=== PATIENT | male | born 1955 | race Caucasian/White ===

== ENCOUNTER 2021-12-26 11:54 | Day surgery (SDC) | payer MEDICARE ==
[2021-12-22 09:15] VITALS: BMI 18.6
[~2021-12-26 11:54] MED LIST: ALBUTEROL NEB (CONC) 2.5 MG/0.5 ML INHALATION ONE; LACTATED RINGERS 1,000 ML IV SCH; LIDOCAINE 2% (PF) 20 MG/ML 5 ML VIAL INHALATION ONE; LIDOCAINE VISCOUS 300 MG/15 ML CUP MUCOUS MEM ONE
[2021-12-26 12:37] VITALS: TEMP 97.1
[2021-12-26] MEDS ORDERED: LIDOCAINE 1% INJ 10MG/ML (20 ML MDV) ONE (12:44)
[2021-12-26] MEDS ORDERED: PROPOFOL 10 MG/ML 20 ML VIAL IV ONE (12:44)
[2021-12-26] MEDS ORDERED: LIDOCAINE 2% INJ 20 MG/ML INTRATRACH ONE (12:55)
--- NOTE | 2021-12-26 13:02 | P.PCN ---
Date of Procedure: 12/26/21 Preoperative Diagnosis: Abnormal CT of the neck with a questionable tracheal lesions/tumor Postoperative Diagnosis: Normal airway examination Procedure(s) Performed: Flexible bronchoscopy and airway examination Anesthesia: MAC Surgeon: Michel Felipe Pathology: other Condition: stable Disposition: same day Operative Findings: This is a flexible bronchoscope that was done under conscious sedation. A timeout was done. A consent was obtained. This procedure was done in the endoscopy suite. The patient was sedated with propofol. After achieving adequate sedation, the flexible scope was introduced through the left nostril was advanced into the upper airway. Examination of the posterior oropharynx, larynx, epiglottis, vallecula, retinoids and the vocal cords were all within normal limits and the patient had no abnormalities in the upper airways. The vocal cord function mobility was within normal limits with normal abduction and adduction. A total of 2 1% lidocaine was applied to the vocal cords and following that the bronchoscope was advanced into the subglottic trachea and airways inspection was done Epiglottic trachea was within normal limits. Examination of the entire trachea was done including the upper mid and lower portion of the trachea and everything was within normal limits. There was no endobronchial lesions, tumors, polyps, foreign bodies. There was limited amount of it for secretions were suctioned out. Airways inspection was completed and examination was done involving the main mina was sharp and it was in the midline. Bilateral mainstem bronchi were within normal limits. Examination of the right settings with a right upper lobe bronchus, bronchus intermedius, right middle lobe and right lower lobe bronchus along with the various segments and the right lung. Examination left- sided pleural and left mainstem bronchus, left upper lobe bronchus and left lower lobe bronchus along with various segments on the left lung. All of these airways were normal and there was no abnormalities identified. No mucosal irregularities. No foreign bodies. After completing the airway inspection, the bronchoscope was removed and patient was transferred recovery in stable condition Plan Proceed with a CAT scan of the chest and reassure the patient regarding the results of the bronchoscopy.
[2021-12-26 13:25] VITALS: BP 115/70; PULSE 80; RESP 18
== END 2021-12-26 14:39 | disposition home or self-care (01) ==
LOC: ORWHC2ENDO 11:54
PROVIDERS: ATTEND Internal Medicine Critical Care Medicine
DX: J39.8 Other specified diseases of upper respiratory tract (principal); F41.1 Generalized anxiety disorder; G89.4 Chronic pain syndrome; J44.9 Chronic obstructive pulmonary disease, unspecified; M06.9 Rheumatoid arthritis, unspecified; Z80.8 Family history of malignant neoplasm of other organs or systems; Z87.891 Personal history of nicotine dependence; K21.9 Gastro-esophageal reflux disease without esophagitis; M81.0 Age-related osteoporosis without current pathological fracture; I10 Essential (primary) hypertension; Z86.73 Personal history of transient ischemic attack (TIA), and cerebral infarction without residual deficits; Z79.83 Long term (current) use of bisphosphonates; Z79.899 Other long term (current) drug therapy; Z97.2 Presence of dental prosthetic device (complete) (partial)
CPT/HCPCS: 31622; J2001 ×2; J2704; 31645

== ENCOUNTER → 2023-01-22 | Outpatient (CLI) | payer MEDICARE ==
--- NOTE | 2023-01-22 11:37 | CT ---
EXAMINATION TYPE: CT thoracic spine wo con DATE OF EXAM: 01/22/2023 COMPARISON: None HISTORY: back pain CT DLP: 549.1 mGycm Automated exposure control for dose reduction was used. Unenhanced CT of the thoracic spine was perfo rmed. FINDINGS: There is curvature convex to the right. There is mild loss of height and mild sclerosis involving T4 and T6 which likely reflects a remote compression fracture. There is a degree of sclerosis and if the re is a history of primary malignancy consider bone scan. The remaining thoracic segments are of norm al height and osseous density. Mild multilevel degenerative disc space narrowing and minimal ventral spondylosis. No evidence for paraspinal mass pleural based calcifications are seen. There are also ca lcified mediastinal lymph nodes. IMPRESSION: 1.There is mild loss of height and mild sclerosis involving T4 and T6 which likely reflects a remote compression fracture. There is a degree of sclerosis and if there is a history of primary malignancy consider bone scan.
== END | disposition home or self-care (01) ==
LOC: RADCTMAIN 10:50
PROVIDERS: ATTEND Family Medicine
DX: M51.14 Intervertebral disc disorders with radiculopathy, thoracic region (principal); M47.814 Spondylosis without myelopathy or radiculopathy, thoracic region; G95.89 Other specified diseases of spinal cord
CPT/HCPCS: 72128

== ENCOUNTER 2024-02-14 14:44 | Inpatient (IN) | payer MEDICARE ==
--- NOTE | 2024-02-14 15:10 | ED ---
General Adult HPI - General Chief complaint: Shortness of Breath Stated complaint: RIKKI-sent by PCP Time Seen by Provider: 02/14/24 14:56 Source: patient, RN notes reviewed Mode of arrival: ambulatory Limitations: no limitations - History of Present Illness Initial comments: Patient is a pleasant 68-year-old male present to the emergency department with concerns with shortness of breath. Onset of symptoms was the past couple of days. Patient does have some chest congestion with cough however cough is nonproductive. Unclear if patient could have had fevers. Patient does have history of COPD. No calf pain or swelling. - Related Data Home Medications Medication Instructions Recorded Confirmed Albuterol Inhaler [Ventolin Hfa 2 puff INHALATION RT-QID PRN 12/22/21 02/14/24 Inhaler] Cholecalciferol [Vitamin D3 (25 25 mcg PO DAILY 02/14/24 02/14/24 Mcg = 1000 Iu)] DULoxetine HCL [Cymbalta] 30 mg PO DAILY PRN 02/14/24 02/14/24 Gabapentin [Neurontin] 300 mg PO TID PRN 02/14/24 02/14/24 Ipratropium-Albuterol Nebulize 3 ml INHALATION RT-QID 02/14/24 02/14/24 [Duoneb 0.5 mg-3 mg/3 ml Soln] Multivitamins, Thera [Multivitamin 1 tab PO DAILY 02/14/24 02/14/24 (formulary)] methocarbamoL [Robaxin] 500 mg PO BID 02/14/24 02/14/24 traMADol HCL 50 mg PO TID 02/14/24 02/14/24 traZODone HCL [Desyrel] 50 mg PO HS 02/14/24 02/14/24 Allergies Allergy/AdvReac Type Severity Reaction Status Date / Time No Known Allergies Allergy Verified 02/14/24 17:08 Review of Systems ROS Statement: Those systems with pertinent positive or pertinent negative responses have been documented in the HPI. ROS Other: All systems not noted in ROS Statement are negative. Constitutional: Denies: fever Eyes: Denies: eye pain ENT: Denies: ear pain Respiratory: Reports: as per HPI, cough, dyspnea Cardiovascular: Denies: chest pain Endocrine: Reports: fatigue Gastrointestinal: Denies: abdominal pain Musculoskeletal: Denies: back pain Past Medical History Past Medical History: COPD, Deep Vein Thrombosis (DVT), Hypertension, Myocardial Infarction (MN), Musculoskeletal Disorder, Rheumatoid Arthritis (RA) Additional Past Medical History / Comment(s): Hx DVT yrs ago, hx kidney stones, hx seizure after going "cold turkey" from drinking 7-8 yrs ago, hx and current thoracic fracture, bulging discs, Osteoporosis. Last Myocardial Infarction Date:: Unknown History of Any Multi-Drug Resistant Organisms: None Reported Past Surgical History: Appendectomy, Orthopedic Surgery Additional Past Surgical History / Comment(s): Kyphoplasty, right carpal tunnel X3, fatty tumor removed from groin, bronchoscopy. Past Anesthesia/Blood Transfusion Reactions: No Reported Reaction Past Psychological History: Anxiety Smoking Status: Former smoker Past Alcohol Use History: Rare Past Drug Use History: Marijuana - Past Family History Mother Family Medical History: No Reported History General Exam Limitations: no limitations General appearance: alert, in no apparent distress Head exam: Present: normocephalic Eye exam: Present: normal appearance Neck exam: Present: normal inspection Respiratory exam: Present: wheezes, decreased breath sounds Cardiovascular Exam: Present: regular rate, normal rhythm GI/Abdominal exam: Present: soft. Absent: tenderness Extremities exam: Present: normal inspection. Absent: pedal edema, calf tenderness Neurological exam: Present: alert Psychiatric exam: Present: normal affect, normal mood Skin exam: Present: normal color Course Vital Signs 02/14/24 02/14/24 02/14/24 14:49 15:16 15:30 Temperature 98.2 F Pulse Rate 60 106 H Respiratory 26 H 22 Rate Blood Pressure 107/67 O2 Sat by Pulse 94 L Oximetry 02/14/24 15:38 Temperature Pulse Rate 112 H Respiratory Rate Blood Pressure O2 Sat by Pulse Oximetry EKG Findings - EKG Results: EKG: interpreted by ERMD, sinus rhythm, normal axis, normal QRS, normal ST/T EKG shows: tachycardia Medical Decision Making - Medical Decision Making Was pt. sent in by a medical professional or institution (, PA, EXPLORATION GEOLOGIST, urgent care, hospital, or fpc...) When possible be specific @ -Patient states he was sent by Dr. Jones's office Did you speak to anyone other than the patient for history (EMS, parent, family, police, friend...)? What history was obtained from this source @ -No Did you review nursing and triage notes (agree or disagree)? Why? @ -I reviewed and agree with nursing and triage notes Were old charts reviewed (outside hosp., previous admission, EMS record, old EKG, old radiological studies, urgent care reports/EKG's, fpc records)? Report findings @ -Previous chest x-ray shows no acute process Differential Diagnosis (chest pain, altered mental status, abdominal pain women, abdominal pain men, vaginal bleeding, weakness, fever, dyspnea, syncope, headache, dizziness, GI bleed, back pain, seizure, CVA, palpatations, mental health, musculoskeletal)? @ -Differential Dyspnea: Coronary syndrome, arrhythmia, tamponade, asthma, COPD, pulmonary embolism, pneumonia, pneumothorax, pulmonary effusion, anaphylaxis, diabetic ketoacidosis, flailed chest, pulmonary contusion, diaphragmatic rupture, anemia, neuromuscular, this is not meant to be an all-inclusive list. EKG interpreted by me (3pts min.). @ -As above X-rays interpreted by me (1pt min.). @ -Chest x-ray shows no acute process CT interpreted by me (1pt min.). @ -None done U/S interpreted by me (1pt. min.). @ -None done What testing was considered but not performed or refused? (CT, X-rays, U/S, labs)? Why? @ -None What meds were considered but not given or refused? Why? @ -None Did you discuss the management of the patient with other professionals (professionals i.e. , PA, EXPLORATION GEOLOGIST, lab, RT, psych nurse, social media marketing analyst, child care centre director, teacher, pharmaceutical officer, family preservation caseworker)? Give summary @ -Dr. Jones who is familiar with this patient and will admit. Was smoking cessation discussed for >3mins.? @ -No Was critical care preformed (if so, how long)? @ -No Were there social determinants of health that impacted care today? How? (Homelessness, low income, unemployed, alcoholism, drug addiction, transportation, low edu. Level, literacy, decrease access to med. care, skilled nursing, rehab)? @ -No Was there de-escalation of care discussed even if they declined (Discuss DNR or withdrawal of care, Hospice)? DNR status @ -No What co-morbidities impacted this encounter? (DM, HTN, Smoking, COPD, CAD, Cancer, CVA, ARF, Chemo, Hep., AIDS, mental health diagnosis, sleep apnea, morbid obesity)? @ -None Was patient admitted / discharged? Hospital course, mention meds given and route, prescriptions, significant lab abnormalities, going to OR and other pertinent info. @ -Patient reevaluated with mild improvement. Patient is updated on results. Patient will be admitted. Admission orders written. Undiagnosed new problem with uncertain prognosis? @ -No Drug Therapy requiring intensive monitoring for toxicity (Heparin, Nitro, Insulin, Cardizem)? @ -No Were any procedures done? @ -No Diagnosis/symptom? @ -COPD Acute, or Chronic, or Acute on Chronic? @ -Acute Uncomplicated (without systemic symptoms) or Complicated (systemic symptoms)? @ -Default Side effects of treatment? @ -No Exacerbation, Progression, or Severe Exacerbation? @ -Exacerbation Poses a threat to life or bodily function? How? (Chest pain, USA, MN, pneumonia, PE, COPD, DKA, ARF, appy, cholecystitis, CVA, Diverticulitis, Homicidal, Suicidal, threat to staff... and all critical care pts) @ -No - Lab Data Result diagrams: 02/14/24 15:30 02/14/24 15:30 Lab Results 02/14/24 02/14/24 02/14/24 Range/Units 15:30 15:30 15:30 WBC 10.4 (3.8-10.6) k/uL RBC 4.76 (4.30-5.90) m/uL Hgb 15.9 (13.0-17.5) gm/dL Hct 48.1 (39.0-53.0) % MCV 101.1 H (80.0-100.0) fL MCH 33.4 (25.0-35.0) pg MCHC 33.0 (31.0-37.0) g/dL RDW 12.9 (11.5-15.5) % Plt Count 330 (150-450) k/uL MPV 7.7 Neutrophils % 69 % Lymphocytes % 18 % Monocytes % 8 % Eosinophils % 3 % Basophils % 1 % Neutrophils # 7.2 (1.3-7.7) k/uL Lymphocytes # 1.8 (1.0-4.8) k/uL Monocytes # 0.8 (0-1.0) k/uL Eosinophils # 0.3 (0-0.7) k/uL Basophils # 0.1 (0-0.2) k/uL PT 10.0 (10.0-12.5) sec INR 0.9 (<1.2) APTT 23.9 (22.0-30.0) sec D-Dimer 0.35 (<0.60) mg/L FEU Sodium 136 L (137-145) mmol/L Potassium 4.6 (3.5-5.1) mmol/L Chloride 105 (98-107) mmol/L Carbon Dioxide 25 (22-30) mmol/L Anion Gap 6 mmol/L BUN 22 H (9-20) mg/dL Creatinine 0.69 (0.66-1.25) mg/dL Est GFR (CKD-EPI)AfAm >90 (>60 ml/min/1.73 sqM) Est GFR (CKD-EPI)NonAf >90 (>60 ml/min/1.73 sqM) Glucose 102 H (74-99) mg/dL Plasma Lactic Acid Diego (0.7-2.0) mmol/L Calcium 10.2 (8.4-10.2) mg/dL Magnesium 1.9 (1.6-2.3) mg/dL Total Bilirubin 0.5 (0.2-1.3) mg/dL AST 22 (17-59) U/L ALT 18 (4-49) U/L Alkaline Phosphatase 61 (38-126) U/L Troponin I (0.000-0.034) ng/mL Total Protein 6.8 (6.3-8.2) g/dL Albumin 4.3 (3.5-5.0) g/dL Influenza Type A (PCR) (Not Detectd) Influenza Type B (PCR) (Not Detectd) RSV (PCR) (Not Detectd) SARS-CoV-2 (PCR) (Not Detectd) 02/14/24 02/14/24 02/14/24 Range/Units 15:30 15:30 15:30 WBC (3.8-10.6) k/uL RBC (4.30-5.90) m/uL Hgb (13.0-17.5) gm/dL Hct (39.0-53.0) % MCV (80.0-100.0) fL MCH (25.0-35.0) pg MCHC (31.0-37.0) g/dL RDW (11.5-15.5) % Plt Count (150-450) k/uL MPV Neutrophils % % Lymphocytes % % Monocytes % % Eosinophils % % Basophils % % Neutrophils # (1.3-7.7) k/uL Lymphocytes # (1.0-4.8) k/uL Monocytes # (0-1.0) k/uL Eosinophils # (0-0.7) k/uL Basophils # (0-0.2) k/uL PT (10.0-12.5) sec INR (<1.2) APTT (22.0-30.0) sec D-Dimer (<0.60) mg/L FEU Sodium (137-145) mmol/L Potassium (3.5-5.1) mmol/L Chloride (98-107) mmol/L Carbon Dioxide (22-30) mmol/L Anion Gap mmol/L BUN (9-20) mg/dL Creatinine (0.66-1.25) mg/dL Est GFR (CKD-EPI)AfAm (>60 ml/min/1.73 sqM) Est GFR (CKD-EPI)NonAf (>60 ml/min/1.73 sqM) Glucose (74-99) mg/dL Plasma Lactic Acid Diego 0.9 (0.7-2.0) mmol/L Calcium (8.4-10.2) mg/dL Magnesium (1.6-2.3) mg/dL Total Bilirubin (0.2-1.3) mg/dL AST (17-59) U/L ALT (4-49) U/L Alkaline Phosphatase (38-126) U/L Troponin I <0.012 (0.000-0.034) ng/mL Total Protein (6.3-8.2) g/dL Albumin (3.5-5.0) g/dL Influenza Type A (PCR) Not Detected (Not Detectd) Influenza Type B (PCR) Not Detected (Not Detectd) RSV (PCR) Not Detected (Not Detectd) SARS-CoV-2 (PCR) Not Detected (Not Detectd) Disposition Clinical Impression: COPD (chronic obstructive pulmonary disease) Disposition: ADMITTED IP TO THIS HOSP Is patient prescribed a controlled substance at d/c from ED?: No Referrals: Frank Jones MD [Primary Care Provider] - 1-2 days Time of Disposition: 17:09
[2024-02-14] MEDS: methylPREDNISolone SOD SUCCI 125 MG/2 ML VIAL IV STA (15:27)
[2024-02-14] MEDS: IPRATROPIUM-ALBUTEROL 3 ML NEB INHALATION STA (15:30)
[2024-02-14 15:41] LABS: Basophils # (A) 0.1 k/uL (0-0.2); Basophils % (A) 1 %; Eosinophils # (A) 0.3 k/uL (0-0.7); Eosinophils % (A) 3 %; HCT 48.1 % (39.0-53.0); HGB 15.9 gm/dL (13.0-17.5); Lymphocytes # (A) 1.8 k/uL (1.0-4.8); Lymphocytes % (A) 18 %; MCH 33.4 pg (25.0-35.0); MCV 101.1 fL (80.0-100.0); Mean Platelet Volume 7.7; Monocytes # (A) 0.8 k/uL (0-1.0); Monocytes % (A) 8 %; Neutrophils # (A) 7.2 k/uL (1.3-7.7); Neutrophils % (A) 69 %; Platelet Count 330 k/uL (150-450); RBC 4.76 m/uL (4.30-5.90); RDW 12.9 % (11.5-15.5); WBC 10.4 k/uL (3.8-10.6)
--- NOTE | 2024-02-14 16:04 | XR ---
EXAMINATION TYPE: XR chest 2V DATE OF EXAM: 02/14/2024 COMPARISON: 12/18/2021 INDICATION: Lung nodule TECHNIQUE: Frontal and lateral views of the chest are obtained. FINDINGS: The heart size is normal. The pulmonary vasculature is normal. There is a small rounded density within the right hilar region stable in comparison. Calcifications s uperior to the aortic arch is stable. No suspicious new nodules evident.. IMPRESSION: 1. No acute pulmonary process. No new nodules identified
[2024-02-14 16:07] LABS: ALT 18 U/L (4-49); AST 22 U/L (17-59); African American GFR (CKD) >90 (>60 ml/min/1.73 sqM); Albumin 4.3 g/dL (3.5-5.0); Alkaline Phosphatase 61 U/L (38-126); Anion Gap 6 mmol/L; Blood Urea Nitrogen 22 mg/dL (9-20); Calcium 10.2 mg/dL (8.4-10.2); Carbon Dioxide 25 mmol/L (22-30); Chloride 105 mmol/L (98-107); Glucose 102 mg/dL (74-99); Magnesium 1.9 mg/dL (1.6-2.3); Non-African American GFR(CKD) >90 (>60 ml/min/1.73 sqM); Potassium 4.6 mmol/L (3.5-5.1); Sodium 136 mmol/L (137-145); Total Bilirubin 0.5 mg/dL (0.2-1.3); Total Protein 6.8 g/dL (6.3-8.2)
[2024-02-14 16:09] LABS: INR 0.9 (<1.2); Partial Thromboplastin Time 23.9 sec (22.0-30.0)
[2024-02-14] MEDS ORDERED: ACETAMINOPHEN TAB 325 MG TAB PO PRN (17:10)
[2024-02-14] MEDS ORDERED: NALOXONE 0.4 MG/ML 1 ML VIAL IVP PRN (17:10)
[2024-02-14] MEDS ORDERED: DULoxetine HCL 30 MG CAPSULE.DR PO PRN (17:39)
[2024-02-14] MEDS ORDERED: GABAPENTIN 300 MG CAP PO PRN (17:39)
[2024-02-14] MEDS: methylPREDNISolone SOD SUCCI 125 MG/2 ML VIAL IV SCH (18:09)
[2024-02-14] MEDS: AZITHROMYCIN 500 MG in SODIUM CHLORIDE 0.9% 250 ML IVPB SCH (18:13)
[2024-02-14] MEDS: IPRATROPIUM-ALBUTEROL 3 ML NEB INHALATION SCH (19:37)
[2024-02-14] MEDS: BUDESONIDE 0.5 MG/2 ML NEBU INHALATION SCH (19:38)
[2024-02-14] MEDS: SODIUM CHLORIDE 0.9% 1,000 ML IV SCH (19:45)
[2024-02-14] MEDS: guaiFENesin 600 MG TABLET.ER PO SCH (20:51)
[2024-02-14] MEDS: traMADol 50 MG TAB PO SCH (20:52)
[2024-02-14] MEDS: methocarbamoL 500 MG TAB PO SCH (21:54)
[2024-02-14] MEDS: traZODone HCL 50 MG TAB PO SCH (21:54)
--- NOTE | 2024-02-15 00:04 | CT ---
EXAMINATION TYPE: CT chest wo con CT DLP: 161 mGycm, Automated exposure control for dose reduction was used. DATE OF EXAM: 02/14/2024 7:53 PM COMPARISON: Same day chest x-ray, CT thoracic spine 01/22/2023 CLINICAL INDICATION:Male, 68 years old with history of cp/pleural effusion; PHH, cp/pleural effusion TECHNIQUE: Multiple axial images were obtained through the chest. Sagittal and coronal reformats were created for review. Contrast used: mL of (None if empty) Oral contrast used: (None if empty) FINDINGS: LUNGS/ PLEURA: Moderate pulmonary emphysematous changes and mild associated scarring. Calcified gran ulomas in the right middle lobe. No acute consolidation, pleural effusion, or pneumothorax. Mild even tration along the diaphragm bilaterally. AIRWAY: Central airways are patent. LOWER NECK: No significant findings. Visualized thyroid is unremarkable. MEDIASTINUM: No enlarged nodes by CT size criteria. Calcified subcarinal nodes consistent with remot e calcified granulomatous disease. Densely popcorn calcified nodule along the left aspect of the T4 v ertebral body, unusual location but could also be calcified granuloma, differential includes osteoma. Appearance would be strange for metastasis, plus it is also stable since spine CT 01/22/2023. HEART: Normal heart size. Moderate coronary artery calcification and/or stents. No appreciable perica rdial effusion. VASCULATURE: Moderate atherosclerotic calcifications of the aorta and branches. Ascending aorta is 3 .3 CM, descending is 2.7 CM. Pulmonary trunk measures 2.1 CM. Pulmonary trunk is normal in size. Vessels otherwise not further ass essed without contrast. SOFT TISSUES/LYMPH NODES: Unremarkable soft tissues. No axillary adenopathy. UPPER ABDOMEN: Small bilateral renal calculi and probable cysts. A few tiny hepatic hypodensities are not fully characterized but likely benign. MUSCULOSKELETAL: No acute osseous abnormality is seen. There is mild/moderate multilevel degenerative change throughout the visualized spine. Stable mild anterior wedge deformities T4 and T6, and unchan ged nodular calcified structure along the left aspect of T4, discussed above. S-shaped scoliotic curv ature involves the lower cervical and the thoracic spine. There is straightening of the mid to inferi or thoracic kyphosis, and exaggerated kyphosis in the upper thoracic spine. IMPRESSION: 1. No acute abnormality in the chest. 2. Moderate pulmonary emphysematous changes. Calcified granulomas in the right middle lobe. 3. Other chronic and likely incidental findings, as described above.
--- NOTE | 2024-02-15 04:57 | HP ---
HISTORY AND PHYSICAL HISTORY OF PRESENT ILLNESS: A 68-year-old white male, comes to emergency room with shortness of breath for the past couple of days, chest congestion, cough, nonproductive. Unclear if he has had fever. He has been short of breath. He can even walk 1 to 2 steps without getting severe chest pain and shortness of breath and pressure in his chest, at which time he came to the hospital. He has had no calf pain or swelling. No swelling of his extremities. No hemoptysis. HOME MEDICATIONS: 1. Ventolin HFA. 2. Cymbalta 30 daily. 3. Neurontin 300 t.i.d. 4. DuoNeb q.i.d. 5. Multivitamin daily. 6. Robaxin 500 b.i.d. 7. Tramadol 50 t.i.d. 8. Trazodone 50 at night. ALLERGIES: Negative. REVIEW OF SYSTEMS: A 14-point review of systems otherwise negative. PAST MEDICAL HISTORY: COPD, DVT, hypertension, myocardial infarction, musculoskeletal disorder, rheumatoid arthritis, history of DVT years ago, kidney stones, seizures, protein deficiency, osteoporosis. He has had thoracic compression fractures, for which he has had epidural shots. PAST SURGICAL HISTORY: Appendectomy, orthopedic surgery, kyphoplasty. SOCIAL HISTORY: Former smoker. Rare marijuana. FAMILY HISTORY: Mother negative. PHYSICAL EXAMINATION: VITAL SIGNS: Blood pressure 107/67, O2 of 94, temp 98.2, pulse 60, respiratory rate 20 to 26. EKG sinus rhythm. GENERAL: Thin, cachectic, short of breath, labored breathing respirations. LUNGS: Inspiratory and expiratory wheezes are minimal, but he has decreased sounds x4 lung lemos. CARDIOVASCULAR: S1, S2. GI: Soft, nontender. MUSCULOSKELETAL: Kyphotic lordotic spine. NEUROLOGIC: He is alert, giving appropriate answers. Cranial nerves appear to be intact. PSYCH: Fair mood and affect. SKIN: Warm, dry. VITAL SIGNS: Temp 98.2, pulse 60 to 106, respiratory rate 20 to 26, blood pressure 107/67, O2 of 94% on room air. EKG sinus rhythm. Sodium 136, potassium 4.0, BUN is 22, creatinine 0.69. ASSESSMENT: Chronic obstructive pulmonary disease exacerbation, tracheobronchitis, atypical chest pain. Troponins negative. EKG shows sinus tachycardia, no ischemia. Influenza are negative. We will do echo, CT of his chest, chest physiotherapy, steroids, updraft treatments. Prognosis guarded. Please see further orders. MMODL / IJN: [id number] /
[2024-02-15] MEDS: CHOLECALCIFEROL 25 MCG (1000 IU) TABLET PO SCH (10:08)
[2024-02-15] MEDS: MULTIVITAMINS, THERA 1 EACH TAB PO SCH (10:08)
[2024-02-15 10:31] VITALS: BMI 16.2
--- NOTE | 2024-02-15 13:34 | PN ---
PROGRESS NOTE SUBJECTIVE: The patient was admitted with COPD exacerbation, tracheobronchitis, unable to walk a few steps due to dizzy and unable to get the phlegm out. Negative D-dimer. BUN is , creatinine 0.69. Lactic acid 0.9. Troponins negative. BNP is 602. CT of the chest shows 2.3 cm moderate coronary calcification, calcified subcarinal nodes, calcified nodule on the left aspect of the T4 vertebral body, possible calcified granuloma. I think he had vertebroplasty that could be , moderate pulmonary emphysema changes, scarring granulomas, degenerative disease throughout the spine, wedge deformities scoliosis. Prognosis guarded. Continue IV steroids. OBJECTIVE: LUNGS: Decreased breath sounds. CARDIOVASCULAR: S1 and S2. PSYCH: He is alert and oriented x3. NEUROLOGIC: Cranial nerves intact. PSYCH: Fair mood and affect. Continue on steroids, updrafts, antibiotics. Prognosis guarded. Wait for day or 2 COPD exacerbation. Acute on chronic hypoxemic respiratory failure. MMODL / IJN: [id number] /
--- NOTE | 2024-02-15 13:42 | CA ---
Transthoracic Echo Report Name: Jermain Addison Age: 68 Gender: M : 1955 Exam Date: 02/15/2024 08:33 Exam Location: [facility] Ht (in): 69 Wt (lb): 110 Ordering Physician: Frank Jones MD Attending/Referring Phys: Competitive Intelligence Analyst Saniya Burgos RDCS Procedure CPT: Indications: dyspnea Cardiac Hx: COPD, HTN, FL Technical Quality: Fair Contrast 1: Total Dose (mL): Contrast 2: Total Dose (mL): MEASUREMENTS (Male / Female) Normal Values 2D ECHO LV Diastolic Diameter PLAX 3.4 cm 4.2 - 5.9 / 3.9 - 5.3 cm LV Systolic Diameter PLAX 2.7 cm IVS Diastolic Thickness 1.2 cm 0.6 - 1.0 / 0.6 - 0.9 cm LVPW Diastolic Thickness 1.2 cm 0.6 - 1.0 / 0.6 - 0.9 cm LV Relative Wall Thickness 0.7 RV Internal Dim ED PLAX 3.5 cm LA Systolic Diameter LX 2.9 cm 3.0 - 4.0 / 2.7 - 3.8 cm LV Diastolic Volume MOD 4C 83.9 cm??? LV Systolic Volume MOD 4C 43.4 cm??? LV Ejection Fraction MOD 4C 48.3 % LV Cardiac Index MOD 4C 2498.5 cm???/min???m??? LV Diastolic Length 4C 8.3 cm LV Systolic Length 4C 7.3 cm LV Diastolic Volume MOD 2C 82.4 cm??? LV Systolic Volume MOD 2C 44.4 cm??? LV Ejection Fraction MOD 2C 46.1 % LV Cardiac Index MOD 2C 2339.7 cm???/min???m??? LV Diastolic Length 2C 8.1 cm LV Systolic Length 2C 6.7 cm LA Volume 31.4 cm??? 18 - 58 / 22 - 52 cm??? LA Volume Index 20.4 cm???/m??? 16 - 28 cm???/m??? M-MODE Aortic Root Diameter MM 3.0 cm AV Cusp Separation MM 2.2 cm DOPPLER AV Peak Velocity 140.5 cm/s AV Peak Gradient 7.9 mmHg MV Area PHT 6.6 cm??? Mitral E Point Velocity 57.2 cm/s Mitral A Point Velocity 72.3 cm/s Mitral E to A Ratio 0.8 MV Deceleration Time 114.5 ms FINDINGS Left Ventricle Left ventricular ejection fraction is estimated at 45-50 %. Mild to moderate global hypokinesis. Small left ventricular cavity. Mildly increased left ventricular wall thickness. Right Ventricle Mild right ventricular dilatation. Unable to estimate the right ventricular systolic pressure. Right Atrium Normal right atrial size. Left Atrium Normal left atrial size. Mitral Valve Mitral valve thickened. No mitral stenosis, or prolapse.mild mitral regurgitation. Aortic Valve Trileaflet aortic valve. Thickened aortic valve without stenosis. Tricuspid Valve Structurally normal tricuspid valve. No tricuspid regurgitation. Pulmonic Valve Pulmonic valve not well visualized. Pericardium No pericardial effusion. Aorta Normal size aortic root and proximal ascending aorta. CONCLUSIONS Technically difficult study. 1. Mild to moderate global hypokinesis 2. Limited Doppler study with mild mitral regurgitation Previewed by: Dr. Mary Kline MD (Electronically Signed) Final Date: 15 Feb 2024 13:41
--- NOTE | 2024-02-15 14:20 | P.CNPUL ---
History of Present Illness Consult date: 02/15/24 Reason for consult: dyspnea, COPD History of present illness: 02/15/2024, the patient is being seen in consultation for worsening shortness of breath. This patient is known to have severe COPD with an FEV1 of 34% predicted. He is an ex-smoker he quit smoking approximately 7 years ago. The patient also has history of chronic anxiety, rheumatoid arthritis, and previous history of acid reflux. He progressively got more short of breath over the past 4 to 5 days. He ended up coming into the emergency department as the patient was having increased dyspnea and wheezing. The D-dimer was low at 0.35. The patient had a CT angiogram that showed no evidence of any pulmonary embolism. No abnormalities of airspace disease. There was some background COPD and calcified pulmonary nodule. The viral screen was negative. Troponins were negative. Electrolytes are all within normal limits. The white cell count was at 10.4 with hemoglobin 15.9. No chest pain. He has remote history of DVTnd he denies having any swelling in lower extremities Review of Systems Constitutional: Reports as per HPI Eyes: denies as per HPI, denies blurred vision, denies bulging eye, denies decreased vision, denies diplopia, denies discharge, denies dry eye, denies irritation, denies itching, denies pain, denies photophobia, denies loss of peripheral vision, denies loss of vision, denies tunnel vision/blind spots Ears: deny: decreased hearing, ear discharge, earache, tinnitus Ears, nose, mouth and throat: Reports as per HPI Breasts: absent: as per HPI, gynecomastia Cardiovascular: Reports decreased exercise tolerance, Reports dyspnea on exertion Respiratory: Reports cough, Reports dyspnea Gastrointestinal: Reports as per HPI Genitourinary: Reports as per HPI Musculoskeletal: Reports as per HPI Musculoskeletal: absent: ankle pain, ankle stiffness, ankle swelling, as per HPI, elbow pain, elbow stiffness, elbow swelling, foot pain, foot stiffness, foot swelling, hand pain, hand stiffness, hand swelling, hip pain, hip stiffness, hip swelling, knee pain, knee stiffness, knee swelling, shoulder pain, shoulder stiffness, shoulder swelling, wrist pain, wrist stiffness, wrist swelling Integumentary: Reports as per HPI Neurological: Reports as per HPI Psychiatric: Reports as per HPI Endocrine: Reports as per HPI Hematologic/Lymphatic: Reports as per HPI Allergic/Immunologic: Reports as per HPI Past Medical History Past Medical History: COPD, Deep Vein Thrombosis (DVT) (> 20 years ago), Hypertension, Myocardial Infarction ([place]), Musculoskeletal Disorder, Rheumatoid A rthritis (RA) Additional Past Medical History / Comment(s): Hx DVT yrs ago, hx kidney stones, hx seizure after going "cold turkey" from drinking 7-8 yrs ago, hx and current thoracic fracture, bulging discs, Osteoporosis. Last Myocardial Infarction Date:: Unknown History of Any Multi-Drug Resistant Organisms: None Reported Past Surgical History: Appendectomy, Orthopedic Surgery Additional Past Surgical History / Comment(s): Kyphoplasty, right carpal tunnel X3, fatty tumor removed from groin, bronchoscopy. Past Anesthesia/Blood Transfusion Reactions: No Reported Reaction Past Psychological History: Anxiety Smoking Status: Former smoker Past Alcohol Use History: Rare Additional Past Alcohol Use History / Comment(s): Quit smoking 7 yrs ago, smoked on and off for close to 50 yrs, 1 ppd. Hx of heavy drinking after 's but quit now has a rare beer. Past Drug Use History: Marijuana Additional Drug Use History / Comment(s): Rare Marijuana use. - Past Family History Mother Family Medical History: No Reported History Medications and Allergies Home Medications Medication Instructions Recorded Confirmed Type Albuterol Inhaler [Ventolin Hfa 2 puff INHALATION RT-QID PRN 12/22/21 02/14/24 History Inhaler] Cholecalciferol [Vitamin D3 (25 25 mcg PO DAILY 02/14/24 02/14/24 History Mcg = 1000 Iu)] DULoxetine HCL [Cymbalta] 30 mg PO DAILY PRN 02/14/24 02/14/24 History Gabapentin [Neurontin] 300 mg PO TID PRN 02/14/24 02/14/24 History Ipratropium-Albuterol Nebulize 3 ml INHALATION RT-QID 02/14/24 02/14/24 History [Duoneb 0.5 mg-3 mg/3 ml Soln] Multivitamins, Thera [Multivitamin 1 tab PO DAILY 02/14/24 02/14/24 History (formulary)] methocarbamoL [Robaxin] 500 mg PO BID 02/14/24 02/14/24 History traMADol HCL 50 mg PO TID 02/14/24 02/14/24 History traZODone HCL [Desyrel] 50 mg PO HS 02/14/24 02/14/24 History Allergies Allergy/AdvReac Type Severity Reaction Status Date / Time No Known Allergies Allergy Verified 02/14/24 17:08 Physical Exam Vitals: Vital Signs Temp Pulse Pulse Resp BP BP Pulse Ox 02/15/24 09:06 100 02/15/24 08:46 104 H 96 02/15/24 07:28 97.7 F 108 H 19 121/72 95 02/15/24 02:58 97.5 F L 99 14 133/74 96 02/14/24 20:46 98.0 F 117 H 20 148/66 95 02/14/24 20:11 97.5 F L 117 H 26 H 143/88 95 02/14/24 19:57 120 H 02/14/24 19:46 109 H 20 120/70 98 02/14/24 19:40 114 H 02/14/24 15:38 112 H 02/14/24 15:30 106 H 02/14/24 15:16 22 02/14/24 14:49 98.2 F 60 26 H 107/67 94 L Intake and Output 02/14/24 02/15/24 02/15/24 22:59 06:59 14:59 Other: Voiding Method Urinal Urinal # Voids 3 Weight 49.895 kg 49.895 kg Calm and comfortable currently on 2 L of oxygen by nasal cannula Head exam was generally normal. There was no scleral icterus or corneal arcus. Mucous membranes were moist. Neck was supple and without jugular venous distension, thyromegaly, or carotid bruits. Carotids were easily palpable bilaterally. There was no adenopathy. Lung sounds are diminished bilaterally and the patient has Expiratory wheezes Cardiac exam revealed the PMI to be normally situated and sized. The rhythm was regular and no extrasystoles were noted during several minutes of auscultation. The first and second heart sounds were normal and physiologic splitting of the second heart sound was noted. There were no murmurs, rubs, clicks, or gallops. Abdominal exam revealed normal bowel sounds. The abdomen was soft, non-tender, and without masses, organomegaly, or appreciable enlargement of the abdominal aorta. Examination of the extremities revealed easily palpable radial, femoral and pedal pulses. There was no cyanosis, clubbing or edema. Examination of the skin revealed no evidence of significant rashes, suspicious appearing nevi or other concerning lesions. Neurologically, the patient is awake and alert and the patient does not have any focal neurological deficit. Cranial nerves are essentially intact. Results - Laboratory Findings CBC and BMP: 02/14/24 15:30 02/14/24 15:30 PT/INR, D-dimer PT 10.0 sec (10.0-12.5) 02/14/24 15:30 INR 0.9 (<1.2) 02/14/24 15:30 D-Dimer 0.35 mg/L FEU (<0.60) 02/14/24 15:30 Abnormal lab findings: Abnormal Labs 02/14/24 02/14/24 15:30 15:30 MCV 101.1 H Sodium 136 L BUN 22 H Glucose 102 H - Diagnostic Findings Chest x-ray: image reviewed CT scan - chest: image reviewed Assessment and Plan Plan: Acute exacerbation of chronic COPD, no evidence of any pneumonia. No airspace disease on the CAT scan of the chest. No evidence of any pulmonary embolism. Viral screen is negative.Echocardiogram shows an ejection fraction of 45 to 50% and the patient has mild to moderate global hypokinesis. No other acute abnormalities have been noted. Calcified right lung pulmonary granuloma Chronic dyspnea secondary to COPD Severe COPD with an FEV1 of 34% predicted at baseline Remote history of DVT, current CT angiogram shows no evidence of any pulm embolism and the D-dimer is low History of nephrolithiasis Osteoporosis Acid reflux Hypertension History of rheumatoid arthritis Plan Will treat patient for strep exacerbation with a combination of bronchodilators and steroids and antibiotics. Will continue to follow.
[2024-02-16] MEDS: guaiFENesin-DM 600/30MG 1 EACH TAB.ER.12H PO SCH (12:12)
--- NOTE | 2024-02-16 12:32 | P.PN ---
Subjective Progress Note Date: 02/16/24 02/15/2024, the patient is being seen in consultation for worsening shortness of breath. This patient is known to have severe COPD with an FEV1 of 34% predicted. He is an ex-smoker he quit smoking approximately 7 years ago. The patient also has history of chronic anxiety, rheumatoid arthritis, and previous history of acid reflux. He progressively got more short of breath over the past 4 to 5 days. He ended up coming into the emergency department as the patient was having increased dyspnea and wheezing. The D-dimer was low at 0.35. The patient had a CT angiogram that showed no evidence of any pulmonary embolism. No abnormalities of airspace disease. There was some background COPD and calcif ied pulmonary nodule. The viral screen was negative. Troponins were negative. Electrolytes are all within normal limits. The white cell count was at 10.4 with hemoglobin 15.9. No chest pain. He has remote history of DVTnd he denies having any swelling in lower extremities 02/16/2024, the patient is being seen for a follow-up. Patient is doing slightly better compared to yesterday. Remains bronchospastic and wheezy and continues to have congestion without the ability to produce much of sputum. Feels better compared to yesterday. No new labs are available from today. He remains on oxy gen at 2 L with a pulse ox of 95%. Remains on bronchodilators. Remains on steroids. Objective - Vital Signs Vital signs: Vital Signs Temp 97.3 F L 02/16/24 07:15 Pulse 104 H 02/16/24 09:47 Resp 18 02/16/24 07:15 BP 128/74 02/16/24 07:15 Pulse Ox 95 02/16/24 09:32 FiO2 Intake & Output 02/15/24 02/16/24 02/16/24 18:59 06:59 18:59 Output Total 440 250 Balance -440 -250 Weight 49.895 kg Output: Urine 440 250 Other: Voiding Method Urinal Urinal Urinal # Voids 4 2 - Exam Calm and comfortable currently on 2 L of oxygen by nasal cannula Head exam was generally normal. There was no scleral icterus or corneal arcus. Mucous membranes were moist. Neck was supple and without jugular venous distension, thyromegaly, or carotid bruits. Carotids were easily palpable bilaterally. There was no adenopathy. Lung sounds are diminished bilaterally and the patient has Expiratory wheezes Cardiac exam revealed the PMI to be normally situated and sized. The rhythm was regular and no extrasystoles were noted during several minutes of auscultation. The first and second heart sounds were normal and physiologic splitting of the second heart sound was noted. There were no murmurs, rubs, clicks, or gallops. Abdominal exam revealed normal bowel sounds. The abdomen was soft, non-tender, and without masses, organomegaly, or appreciable enlargement of the abdominal aorta. Examination of the extremities revealed easily palpable radial, femoral and pedal pulses. There was no cyanosis, clubbing or edema. Examination of the skin revealed no evidence of significant rashes, suspicious appearing nevi or other concerning lesions. Neurologically, the patient is awake and alert and the patient does not have any focal neurological deficit. Cranial nerves are essentially intact. - Labs CBC & Chem 7: 02/14/24 15:30 02/14/24 15:30 Labs: Microbiology - Last 24 Hours (Table) 02/14/24 18:10 Blood Culture - Preliminary Blood 02/14/24 17:55 Blood Culture - Preliminary Blood Assessment and Plan Plan: Acute exacerbation of chronic COPD, no evidence of any pneumonia. No airspace disease on the CAT scan of the chest. No evidence of any pulmonary embolism. Viral screen is negative.Echocardiogram shows an ejection fraction of 45 to 50% and the patient has mild to moderate global hypokinesis. No other acute abno rmalities have been noted. Calcified right lung pulmonary granuloma Chronic dyspnea secondary to COPD Severe COPD with an FEV1 of 34% predicted at baseline Remote history of DVT, current CT angiogram shows no evidence of any pulm embolism and the D-dimer is low History of nephrolithiasis Osteoporosis Acid reflux Hypertension History of rheumatoid arthritis Plan Continue same treatment Continue bronchodilators and steroids and antibiotics. Add Mucinex Increase mobility Flutter valve will continue to follow.
--- NOTE | 2024-02-17 04:10 | DS ---
DISCHARGE SUMMARY Acute on chronic diastolic heart failure, COPD, O2 dependent, lung cancer and normal CAT scan of the neck and chest, diabetes, diabetic neuropathy, peripheral vascular disease, onychomycosis of the toenails. CURRENT MEDICATIONS: 1. Neurontin 300 t.i.d. 2. Cymbalta 30 daily. 3. Tramadol 50 t.i.d. 4. DuoNeb q.i.d. 5. Multivitamin daily. 6. 2 L of oxygen around the clock. 7. Ventolin HFA inhaler 2 puffs q.4 hours p.r.n. 8. Desyrel 50 q.h.s. 9. Robaxin 500 b.i.d. Prognosis is very guarded. Follow up with Oncology here. He had an oncologist at [place]. He stopped going to 2 years ago for his cancer treatment because his family could not take him there. Family could not give him transportation from his house and he did not think he had a cancer problem anyway, but he was given chemotherapy from oncologist at [place] which the caregiver stopped taken him. He may be follow up with our Oncology guys here and get the records from down there. He is supposed to be scheduled for neck surgery with a doctor up in [place], Neurosurgery in a week or 2, they held the surgery due to low hemoglobins. Eliquis was discontinued. His hemoglobin with iron transfusion went up to 10.6 on discharge. His strength is better. He is not ambulating with his legs being weak, but his leg swelling is greatly diminished. His breathing is better and he is more alert. So follow up with neck surgeon in [place] as well as Oncology here for possible chemotherapy treatment. Family is unable to care for him at home and refused to take him home because they were very ill apparently. He has nowhere to live, so he will have to go to [facility] for rehab and possibly guardian be appointed as well. MMODL / IJN: [id number] /
[2024-02-17] MEDS: IPRATROPIUM-ALBUTEROL 3 ML NEB INHALATION PRN (04:24)
--- NOTE | 2024-02-17 08:40 | PN ---
PROGRESS NOTE He is admitted with COPD exacerbation. Blood cultures are negative so far. Labs were decent. I think he has COPD exacerbation and environmental toxins causing pneumonitis on him. He may need some antibiotics, steroids, updrafts, etc. Prognosis is guarded. He appears to be better than he was by about 20% in someone who was admitted. Continue current treatment. Prognosis guarded. Please see further orders. Troponins negative so far. MMODL / IJN: [id number] /
--- NOTE | 2024-02-17 13:44 | P.PN ---
Subjective Progress Note Date: 02/17/24 02/15/2024, the patient is being seen in consultation for worsening shortness of breath. This patient is known to have severe COPD with an FEV1 of 34% predicted. He is an ex-smoker he quit smoking approximately 7 years ago. The patient also has history of chronic anxiety, rheumatoid arthritis, and previous history of acid reflux. He progressively got more short of breath over the past 4 to 5 days. He ended up coming into the emergency department as the patient was having increased dyspnea and wheezing. The D-dimer was low at 0.35. The patient had a CT angiogram that showed no evidence of any pulmonary embolism. No abnormalities of airspace disease. There was some background COPD and calcified pulmonary nodule. The viral screen was negative. Troponins were negative. Electrolytes are all within normal limits. The white cell count was at 10.4 with hemoglobin 15.9. No chest pain. He has remote history of DVTnd he denies having any swelling in lower extremities 02/16/2024, the patient is being seen for a follow-up. Patient is doing slightly better compared to yesterday. Remains bronchospastic and wheezy and continues to have congestion without the ability to produce much of sputum. Feels better compared to yesterday. No new labs are available from today. He remains on oxygen at 2 L with a pulse ox of 95%. Remains on bronchodilators. Remains on steroids. The patient is seen today February 17, 2024 in follow-up on the regular medical floor. He is currently sitting up at the bedside. Awake and alert in no acute distress. Maintaining O2 saturations in the 90s on 2 L/min per nasal cannula. Blood cultures revealed no growth. No new labs today. Remains on DuoNeb venti lations, Symbicort, IV Solu-Medrol. Remains on Mucinex as needed. Objective - Vital Signs Vital signs: Vital Signs Temp 97.8 F 02/17/24 07:10 Pulse 100 02/17/24 11:58 Resp 19 02/17/24 07:10 BP 127/76 02/17/24 07:10 Pulse Ox 99 02/17/24 07:10 FiO2 Intake & Output 02/16/24 02/17/24 02/17/24 18:59 06:59 18:59 Intake Total 540 Output Total 400 725 200 Balance -400 -185 -200 Intake: Oral 540 Output: Urine 400 725 200 Other: Voiding Method Urinal Urinal # Voids 6 - Exam GENERAL EXAM: Alert, pleasant 68-year-old gentleman, on 2 L nasal cannula, comfortable in no apparent distress. HEAD: Normocephalic. EYES: Normal reaction of pupils, equal size. NOSE: Clear with pink turbinates. THROAT: No erythema or exudates. NECK: No masses, no JVD. CHEST: No chest wall deformity. LUNGS: Equal air entry with faint end expiratory wheeze, diminished. CVS: S1 and S2 normal with no audible murmur, regular rhythm. ABDOMEN: No hepatosplenomegaly, normal bowel sounds, no guarding or rigidity. SPINE: No scoliosis or deformity SKIN: No rashes CENTRAL NERVOUS SYSTEM: No focal deficits, tone is normal in all 4 extremities. EXTREMITIES: There is no peripheral edema. No clubbing, no cyanosis. Peripheral pulses are intact. - Labs CBC & Chem 7: 02/14/24 15:30 02/14/24 15:30 Labs: Microbiology - Last 24 Hours (Table) 02/14/24 18:10 Blood Culture - Preliminary Blood 02/14/24 17:55 Blood Culture - Preliminary Blood Assessment and Plan Assessment: Acute exacerbation of chronic COPD, no evidence of any pneumonia. No airspace disease on the CAT scan of the chest. No evidence of any pulmonary embolism. Viral screen is negative. Echocardiogram shows an ejection fraction of 45 to 50% and the patient has mild to moderate global hypokinesis. No other acute abnormalities have been noted Calcified right lung pulmonary granuloma Chronic dyspnea secondary to COPD Severe COPD with an FEV1 of 34% predicted at baseline Remote history of DVT, current CT angiogram shows no evidence of any pulmonary embolism and the D-dimer is low History of nephrolithiasis Osteoporosis Acid reflux Hypertension History of rheumatoid arthritis Plan: The patient was seen and evaluated Medications reviewed Discontinue Solu-Medrol Initiated prednisone taper Cleared for discharge from the pulmonary standpoint Continue Symbicort, albuterol HFA, DuoNeb ventilations Follow-up with his intellectual property paralegal in 1 week I have personally seen and examined the patient, performed the documentation and the assessment and plan as written. Number of minutes spent on the visit: 10.
--- NOTE | 2024-02-17 14:56 | CDI ---
Documentation Clarification Form Date: 02/17/2024 02:31:26 PM From: Marian Bustillos RN CCDS Phone: [phone] Admit Date: 02/14/2024 05:11:00 PM Patient Name: Jermain Addison Visit Number: [id number] Discharge Date: ATTENTION: The Clinical Documentation Specialists (CDI) and [facility] Coding Staff appreciate your assistance in clarifying documentation. Please respond to the clarification below the line at the bottom and electronically sign. The CDI & [facility] Coding staff will review the response and follow-up if needed. Please note: Queries are made part of the Legal Health Record. If you have any questions, please contact the author of this message via ITS. Dr. Frank Jones Acute on Chronic diastolic heart failure is documented 02/15, DCS, which may lack sufficient clinical evidence/support in the medical record. Additional clarification is requested. History/Risk Factors: 68 year old male presents to the ED with shortness of breath for the past couple of days, chest congestion, cough nonproductive. Unclear of fever. Medical history: COPD, DVT, Anxiety, home oxygen, calcified right lung pulmonary granuloma and HTN. 02/14, HP Clinical Indicators: 02/13, CXR: No acute pulmonary process. No new nodules identified. 02/13, BNP: 602 02/14, ECHO: EF 45-50% Mild to moderate global hypokinesis. Limited Doppler study with mild mitral regurgitation. 02/16, Pulmonary note: no extremity swelling. Treatment: 02/13 monitoring intake and output Please clarify if [insert diagnosis] is a valid diagnosis? [ ] Yes, Acute on Chronic Diastolic Heart Failure is present as evidence by (additional clinical support): [ ] No, Acute on Chronic Diastolic Heart Failure is ruled out [ ] Other (please specify diagnosis) [ ] Unable to determine (Template Last Revised: December 2020) MTDD
--- NOTE | 2024-02-17 15:20 | CDI ---
Documentation Clarification Form Date: 02/17/2024 02:59:18 PM From: Marian Varela RN CCDS Phone: [phone] Admit Date: 02/14/2024 05:11:00 PM Patient Name: Jermain Addison Visit Number: [id number] Discharge Date: ATTENTION: The Clinical Documentation Specialists (CDI) and [facility] Coding Staff appreciate your assistance in clarifying documentation. Please respond to the clarification below the line at the bottom and electronically sign. The CDI & [facility] Coding staff will review the response and follow-up if needed. Please note: Queries are made part of the Legal Health Record. If you have any questions, please contact the author of this message via ITS. Dr. Frank Jones The Registered Dietitian assessment on 02/14 indicates this patient meets criteria for Acute Severe Malnutrition. Based on this information and the findings below, is there an additional diagnosis that is clinically appropriate for this patient? History/Risk Factors: 68 year old male presents to the ED with shortness of breath for the past couple of days, chest congestion, cough nonproductive. Unclear of fever. Medical history: COPD, DVT, Anxiety, home oxygen, calcified right lung pulmonary granuloma and HTN. 02/14, HP Clinical Indicators: Registered Dietitian consult, 02/14. Current BMI: 16.2kg, 5ft 9in Wgt 49.895kg Calculated ideal body weight 72.575kg Nutritional Intake: Fair percent consumed 25-50%, Nutritional concerns: Difficulty Chewing, poor fitting bottom dentures. Physical findings Underweight Estimated Nutritional Needs Kcals 25 30Kcals/Kg Energy needs 6890-0338 Kcal Estimated protein needs 1.2gm/kg, 87grams/day. Chopped /soft diet. Acute Severe Malnutrition. . [Cite applicable ASPEN criteria listed below] Treatment: Diet education, Soft diet chopped. Supplements: Chocolate Enlive TID. Is there an additional diagnosis that is clinically appropriate for this patient? [ ] Severe Protein-Calorie Malnutrition [ ] Other condition, please specify [ ] Unable to Determine (Template Last Revised: April 2023) MTDD
[2024-02-17] MEDS ORDERED: BUDESONIDE 1 MG/2 ML NEBU INHALATION SCH (20:00)
[2024-02-17 20:12] VITALS: RESP 18
[2024-02-17] MEDS: SYMBICORT 160-4.5 MCG INHALER INHALATION SCH (21:56)
--- NOTE | 2024-02-17 22:32 | DS ---
DISCHARGE SUMMARY ADDENDUM: Acute on chronic diastolic heart failure, moderate protein-calorie malnutrition. MMODL / IJN: [id number] /
[2024-02-18] MEDS: predniSONE 20 MG TAB PO SCH (07:37)
--- NOTE | 2024-02-18 07:45 | PN ---
PROGRESS NOTE SUBJECTIVE: The patient is a 68-year-old white male, remains on has a Mucinex, DuoNeb, Symbicort, sent home on a prednisone taper. Has been cleared by Dr. Larsen. OBJECTIVE: CARDIOVASCULAR: S1, S2. LUNGS: Mild wheezes x4. GI: Soft. HEMATOLOGY: Negative for Homans. PSYCH: Fair mood and affect. VITAL SIGNS: Pulse is 100 to 104, temp 97.9 to 98.1, blood pressure 126/74 to 153/84, and O2 95 on room air. ASSESSMENT: COPD exacerbation, tracheobronchitis, chemical pneumonitis and viral pneumonitis, allergic rhinitis. PROGNOSIS: Guarded. Discharge orders were put in, he will go home today. Prognosis guarded. MMODL / IJN: [id number] /
[2024-02-18 08:13] VITALS: BP 101/69; PULSE 85; TEMP 97.5
--- NOTE | 2024-03-31 18:17 | CDI ---
Documentation Clarification Form Date: 03/31/2024 06:14:00 PM From: Grzegorz Washington Phone: Admit Date: 02/14/2024 05:11:00 PM Patient Name: Jermain Addison Visit Number: [id number] Discharge Date: 02/18/2024 07:45:00 AM ATTENTION: The Clinical Documentation Specialists (CDI) and [facility] Coding Staff appreciate your assistance in clarifying documentation. Please respond to the clarification below the line at the bottom and electronically sign. The CDI & [facility] Coding staff will review the response and follow-up if needed. Please note: Queries are made part of the Legal Health Record. If you have any questions, please contact the author of this message via ITS. Dr. Frank Jones Conflicting documentation has been found in the medical record. As attending physician, please provide clarification. Frank Portillo documented under assessment of the progress note on 02-17-24, viral pneumonia Dr Michel Felipe documented on consult note no pneumonia History/Risk Factors: Clinical Indicators: SOB chest congestion cough nonproductive. home oxygen Mild wheezes x4. temp 97.9 to 98.1 O2 95 on room air. LUNGS: Moderate pulmonary emphysematous changes and mild associated scarring.Calcified granulomas in the right middle lobe.No acute consolidation, pleural effusion, or pneumothorax.Mild eventration along the diaphragm bilaterally. AIRWAY: Central airways are patent. Treatment: Remains on DuoNeb Symbicort Solu-Medrol, my recommendation is to continue the same treatment for COPD, initiate prednisone taper Please clarify which diagnosis is most appropriate: [ ] Pneumonia Ruled In [ ] [Pneumonia Ruled Out [ ] Other (please specify) [ ] Unable to determine MTDD
--- NOTE | 2024-03-31 23:37 | PN ---
PROGRESS NOTE Pneumonia ruled out. MMODL / IJN: [id number] /
== END 2024-02-18 07:45 | disposition home or self-care (01) | DRG 190 ==
LOC: EC 14:44 → 4SSUR 17:11
PROVIDERS: ADMIT Family Medicine; ATTEND Family Medicine
DX: J44.1 Chronic obstructive pulmonary disease with (acute) exacerbation (principal); I50.33 Acute on chronic diastolic (congestive) heart failure; J96.21 Acute and chronic respiratory failure with hypoxia; E44.0 Moderate protein-calorie malnutrition; Z68.1 Body mass index [BMI] 19.9 or less, adult; R00.0 Tachycardia, unspecified; M06.9 Rheumatoid arthritis, unspecified; J84.10 Pulmonary fibrosis, unspecified; I10 Essential (primary) hypertension; I73.9 Peripheral vascular disease, unspecified; E11.42 Type 2 diabetes mellitus with diabetic polyneuropathy; J30.9 Allergic rhinitis, unspecified; I25.2 Old myocardial infarction; F41.8 Other specified anxiety disorders; K21.9 Gastro-esophageal reflux disease without esophagitis; B35.1 Tinea unguium; M81.0 Age-related osteoporosis without current pathological fracture; Z87.442 Personal history of urinary calculi
CPT/HCPCS: 36415; 71046; 71250; 80053; 83605; 83735; 83880; 84145; 84484; 85025; 85379; 85610; 85730; 87040; 87636; 93005; 93306; 94640; 94664; 94667; 94760; 96365; 96366; 96375; 96376; 99285